=== PATIENT | male | born 1955 ===

== ENCOUNTER 2017-09-23 07:37 | Emergency (ER) | payer OTHER ==
[2017-09-23 07:42] VITALS: TEMP 97.3; O2SAT 98
[2017-09-23] MEDS ORDERED: Tdap Vaccine 0.5 ml Vial (10-64 yrs) IM ONE (07:56)
--- NOTE | 2017-09-23 08:25 | ED PDOC ---
HPI: General Adult Time Seen by Provider: 09/23/17 07:51 Chief Complaint (Nursing): Abnormal Skin Integrity Chief Complaint (Provider): Abnormal Skin Integrity History Per: Patient History/Exam Limitations: no limitations Onset/Duration Of Symptoms: Hrs Additional Complaint(s): Butch Farfan is a 62 years old male presents to the ED for evaluation of laceration to his right hand 5th digit. Patient states he was doing the dishes when he cut himself with glass. He offers no other medical complaints. PMD: non provided Past Medical History Reviewed: Historical Data, Nursing Documentation, Vital Signs Vital Signs: Last Vital Signs Temp 97.3 F L 09/23/17 07:41 Pulse 70 09/23/17 09:09 Resp 16 09/23/17 09:09 BP 142/78 09/23/17 09:09 Pulse Ox 98 09/25/17 11:26 - Medical History PMH: No Chronic Diseases - Surgical History Surgical History: No Surg Hx - Family History Family History: States: Unknown Family Hx - Social History Current smoker - smoking cessation education provided: No Alcohol: None Drugs: Denies - Immunization History Hx Tetanus Toxoid Vaccination: No - Allergies Allergies/Adverse Reactions: Allergies Allergy/AdvReac Type Severity Reaction Status Date / Time No Known Allergies Allergy Verified 09/23/17 07:49 Review of Systems ROS Statement: Except As Marked, All Systems Reviewed And Found Negative Skin: Positive for: Other (laceration of right hand 5th digit) Physical Exam - Reviewed Nursing Documentation Reviewed: Yes Vital Signs Reviewed: Yes - Physical Exam Appears: Positive for: Non-toxic, No Acute Distress Extremity: Positive for: Other (circular laceration of tip of right hand 5th digit. Bleed is in control. No foreign body.) Neurologic/Psych: Positive for: Alert, Oriented - ECG O2 Sat by Pulse Oximetry: 98 (RA) Pulse Ox Interpretation: Normal Medical Decision Making Medical Decision Making: Time:0800 Initial Impression: Laceration Initial Plan: --Adacel --Right hand 5th digit (RAD) Scribe Attestation: Documented by Annie Barajas, acting as a scribe for Ramandeep Blevins MD Provider Scribe Attestation: All medical record entries made by the Scribe were at my direction and personally dictated by me. I have reviewed the chart and agree that the record accurately reflects my personal performance of the history, physical exam, medical decision making, and the department course for this patient. I have also personally directed, reviewed, and agree with the discharge instructions and disposition. Procedures - Time-Out Type of Procedure: Laceration Repair Site of Procedure: Right hand 5th digit Correct Patient (with visual ID + MR# on ID Band): Yes Correct Procedure: Yes - Laceration/Wound Repair Right Finger Wound Complexity: Simple Progress: Time: 0900 Laceration of right hand 5th digit. Disposition - Clinical Impression Clinical Impression: Finger laceration - Disposition Referrals: [facility] [place] [Outside] Disposition: Routine/Home Disposition Time: 09:01 Condition: STABLE Additional Instructions: TAKE MOTRIN NEEDED FOR PAIN. Instructions: Laceration Repair With Glue (DC), Common Finger Injuries (DC) Forms: [employer] (Citizen Of [place])
[2017-09-23 09:10] VITALS: BP 142/78; PULSE 70; RESP 16
--- NOTE | 2017-09-23 09:45 | RAD ---
PROCEDURE: Right small finger radiographs. HISTORY: r/o FB COMPARISON: None. TECHNIQUE: AP radiograph of the right hand, as well as spot oblique and lateral images of small finger were obtained. FINDINGS: RIGHT SMALL FINGER: No acute fracture. JOINTS: Normal. SOFT TISSUES: No radiopaque foreign body. OTHER FINDINGS: None. IMPRESSION: No demonstrated fracture, dislocation or retained radiopaque foreign body.
== END 2017-09-23 09:11 | disposition home or self-care (01) ==
LOC: H.ER 07:37
DX: S61.216A Laceration without foreign body of right little finger without damage to nail, initial encounter (principal); Z23 Encounter for immunization; W25.XXXA Contact with sharp glass, initial encounter; Y93.G1 Activity, food preparation and clean up